=== PATIENT | female | born 1950 | race Caucasian/White ===

== ENCOUNTER 2024-02-17 10:47 | Outpatient (AMB) | payer MEDICARE, SELFPAY ==
--- NOTE | 2024-02-17 11:19 | AM.OFFWIN_ITS ---
Intake Vital Signs 02/17/24 11:24 02/17/24 12:28 Height 5 ft 1 in Weight 156 lb 8 oz BMI 29.6 BP 142/68 H 138/70 Blood Pressure Location Lt brachial Lt brachial Position Sitting Sitting Respiration 16 Pulse 77 Pulse Source Pulse Oximeter Temp 97.9 F Temp Source Oral Pulse Oximetry (%) 96 Oxygen Delivery Method Room Air Intake Visit Reasons: est/cold symptoms for a week Intake Note: patient here c/o cold symptoms for a week Box Builder Required: No Is last menstrual period known: No Post menopausal: No Patient : No Allergies No Known Allergies Allergy (Verified 02/17/24 12:38) Medication List - Last Reconciled 02/17/24 by Mirna Marcelo CNP alendronate 70 mg PO QWEEK atorvastatin 80 mg PO DAILY fluticasone propionate 50 mcg/actuation sprays intranasal hydrochlorothiazide 25 mg PO DAILY lisinopril 10 mg PO DAILY loratadine 10 mg PO DAILY nystatin-triamcinolone 100,000-0.1 unit/gram-% topical omeprazole 20 mg PO DAILY Do you need a note to return to daycare/school/sports/work: No HPI HPI Comments History of Present Illness Details 73-year-old female presents with complai nts of intermittent nonproductive cough, post-nasal drip, and raspy voice for the past one week. No wheezing, difficulty breathing, chest pain, sore throat, or headache. She denies fever, chills, body aches, fatigue, or weakness. She a negative home covid test 5 days. No sick contacts. [facility] Social History Patient : No Review of Systems Const Details: Denies chills, Denies fatigue, Denies fever(s), Denies headache(s) and Denies weakness ENT Reports as per HPI Cardiac Denies chest pain, Denies claudication, Denies leg edema, Denies lightheadedness, Denies palpitations, Denies dyspnea, Denies dyspnea on exertion, Denies orthopnea and Denies other (Loss of consciousness) Resp Reports cough, Denies excessive phlegm production, Denies dyspnea, Denies dyspnea on exertion, Denies snoring and Denies wheezing Physical Exam Vital Signs: Last Vital Signs Temp 97.9 F 02/17/24 11:24 Pulse 77 02/17/24 11:24 Resp 16 02/17/24 11:24 BP 142/68 H 02/17/24 11:24 Pulse Ox 96 02/17/24 11:24 Oxygen Delivery Method Room Air 02/17/24 11:24 BMI result Body Mass Index 29.6 Const Other: General: comfortable and no acute distress Orientation/consciousness: patient oriented x3 ENT Head is normocephalic Bilateral ear canal and TMs are normal Nasal turbinates and oropharynx are pink and moist Sinuses are nontender with palpation No auricular or cervical lymphadenopathy Chest Chest palpation & inspection: normal inspection of the chest Resp Auscultation: clear to auscultation bilaterally Cardiac Palpation: normal PMI Heart sounds: S1 normal heart sound present, S2 normal heart sound present, no gallops, no murmur, no rubs Assessment & Plan Assessment & Plan (1) Viral upper respiratory illness: Code(s): J06.9 - Acute upper respiratory infection, unspecified Plan: Likely viral illness though possibly allergies. No exam evidence of bacterial infection Viral illness There is no antibiotic medication for viruses.? They must run their course.? Most average 5-7 days but 7-10 days is not uncommon and up to 14 days is still possible.? A cough is often the last symptom to resolve and this can last for weeks in some cases. Rest Hydrate well -? Drink plenty of fluids.? Especially water. Tylenol or ibuprofen for muscle aches, headache, fever/discomfort Cannot rule out COVID-19/RSV/Flu infection Nasal swab acquired and will be sent to the lab Return for new or worsening symptoms Verbalized understanding and agreed with treatment plan. Orders: Orders SARS-CoV2/FLU/RSV Today J06.9 - Acute upper respiratory infection, unspecified Coding Level of Care Code Est Pt Level 3 (77938) Diagnoses Viral upper respiratory illness J06.9
[2024-02-17 11:24] VITALS: BP 142/68; PULSE 77; RESP 16; TEMP 36.6; O2SAT 96; BMI 29.6
[2024-02-17 12:28] VITALS: BP 138/70
== END 2024-02-17 12:39 | disposition home or self-care (01) ==
PROVIDERS: Visit Provider Nurse Practitioner Family
DX: J06.9 Acute upper respiratory infection, unspecified (principal)

== ENCOUNTER 2024-02-17 10:47 | Outpatient (REF) | payer MEDICARE, SELFPAY ==
[2024-02-17 15:55] LABS: Influenza A PCR NEGATIVE (Negative); Influenza B PCR NEGATIVE (Negative); Resp Syncy Virus RNA Qual PCR NEGATIVE (Negative); SARS COV2 PCR INHOUSE NEGATIVE (Negative)
== END 2024-02-17 10:48 | disposition home or self-care (01) ==
LOC: HO.LAB 10:47
PROVIDERS: Nurse Practitioner Family
DX: J06.9 Acute upper respiratory infection, unspecified (principal)
CPT/HCPCS: 0241U; 99212